=== PATIENT | female | born 1970 | race Caucasian/White ===

== ENCOUNTER 2016-11-08 11:27 | Inpatient (IN) | payer OTHER ==
[~2016-11-08] VITALS: Ht 162.6 cm; Wt 122.7 kg
[~2016-11-08 11:27] MED LIST: "\\\"BP MED\\\""; "\\\"CHOLESTEROL MED\\\""; ABILIFY5 MG PO; ACCUNEB 0.0.63 MG/3 INH; ALBUTEROL0.09 MG/A2 IH; AMBIEN10 M1 PO; AMBIEN10 MG PO; AMOXICILLIN500 MG PO; ATORVASTATIN TAB 20M; B-12 IM; BIRTH CONTROL1 EAC1 PO; CATAFLAM50 MG PO; CIPROFLOXACIN500 MG PO; CLARITIN10 MG PO; CLEOCIN HCL150 MG PO; CYMBALTA60 MG PO; DILANTIN PO; FERATE27 MG PO; FERROUS SULFAT325 M1 PO; FIORICET 325 MG1 TAB PO; FUROSEMIDE40 MG PO; KCL; KEPPRA500 MG PO; LASIX10 MG/ML PO; LASIX20 MG PO; LASIX40 MG PO; LEVOFLOXACIN500 MG PO; LIPITOR10 MG PO; MULTIPLE VITAMI1 CAP PO; MULTIVITAMIN1 CTB PO; PANTOPRAZOLE TAB 40M; PEN-VEE K500 MG PO; POTASSIUM CHLO20 ME1 PO; PRENATAL1 TA1 PO; PROTONIX40 MG PO; SERTRALINE HYD100 MG PO; SYMBICORT1 AE1 IH; SYMBICORT1 AE1 INH; TRAMADOL HCL50 MG PO; TRAMADOL50 MG PO; TRIMOX500 MG PO; VENTOLIN H0.09 MG/AC IH; VENTOLIN0.09 MG/AC INH; XANAX0.25 MG PO; XANAX1 MG PO; ZESTRIL,PRINIVI10 MG PO; ZOFRAN4 MG PO
[2016-11-08] MEDS ORDERED: NEURONTIN400 MG PO (11:32)
[2016-11-08] MEDS ORDERED: VISTARIL25 MG PO (11:33)
[2016-11-08] MEDS ORDERED: VRAYLAR3 MG PO (11:33)
[2016-11-08] MEDS ORDERED: LAMICTAL100 MG PO (11:33)
[2016-11-08 11:34] VITALS: BP 129/83
[2016-11-08 12:04] LABS: BASO # 0.1 10*3/uL (0.0-0.1); BASO % 0.5 % (0.0-1.0); EOS # 1.1 10*3/uL (0.0-0.4); EOS % 7.1 % (1.0-4.0); HEMATOCRIT 38.6 % (37.0-47.0); HEMOGLOBIN 12.4 g/dl (12.0-16.0); IG # 0.1 10*3/uL (0.0-0.1); LYMPH # 2.1 10*3/uL (1.3-4.4); LYMPH % 13.2 % (27.0-41.0); MEAN CELL VOLUME 86.2 fl (81.0-99.0); MEAN CORPUSCULAR HGB 27.7 pg (27.0-31.0); MEAN CORPUSCULAR HGB CONC 32.1 g/dl (33.0-37.0); MEAN PLATELET VOLUME 9.6 fl (9.6-12.3); MONO % 6.1 % (3.0-9.0); NEUT # 11.4 10*3/uL (2.3-7.9); NEUT % 72.5 % (47.0-73.0); PLATELET COUNT AUTOMATED 375 10*3/uL (130-400); RED BLOOD COUNT 4.48 10*6/uL (4.10-5.10); WHITE BLOOD COUNT 15.7 10*3/uL (4.8-10.8)
[2016-11-08 12:19] LABS: BILIRUBIN, TOTAL 0.2 mg/dl (0.2-1.0); BUN 9 mg/dl (7-24); CARBON DIOXIDE 26 mmol/L (21-32); CHLORIDE 105 mmol/L (98-107); EST GLOM FILT AFRICAN AMERICAN > 60 ml/min; GLUCOSE 84 mg/dL (65-99); SGOT/AST 16 IU/L (3-35); SGPT/ALT 11 U/L (12-78); SODIUM 140 mmol/L (136-145); TOTAL PROTEIN 7.2 gm/dL (6.4-8.2)
[2016-11-08 12:21] LABS: ALKALINE PHOSPHATASE 118 U/L (45-117)
[2016-11-08 12:26] VITALS: BP 120/77
[2016-11-08 12:34] VITALS: BP 133/92
[2016-11-08 13:20] VITALS: BP 102/65
[2016-11-08 16:00] VITALS: BP 101/60
[2016-11-08 20:00] VITALS: BP 98/52
[2016-11-09] VITALS (8 sets, daily range): BP systolic 98–132; BP diastolic 43–92
[2016-11-09 06:59] LABS: BASO # 0.1 10*3/uL (0.0-0.1); BASO % 0.4 % (0.0-1.0); EOS # 0.8 10*3/uL (0.0-0.4); EOS % 5.7 % (1.0-4.0); HEMATOCRIT 36.5 % (37.0-47.0); HEMOGLOBIN 11.6 g/dl (12.0-16.0); IG # 0.1 10*3/uL (0.0-0.1); LYMPH # 1.3 10*3/uL (1.3-4.4); LYMPH % 9.5 % (27.0-41.0); MEAN CELL VOLUME 86.7 fl (81.0-99.0); MEAN CORPUSCULAR HGB 27.6 pg (27.0-31.0); MEAN CORPUSCULAR HGB CONC 31.8 g/dl (33.0-37.0); MEAN PLATELET VOLUME 9.4 fl (9.6-12.3); MONO # 0.6 10*3/uL (0.1-1.0); MONO % 4.3 % (3.0-9.0); NEUT # 10.8 10*3/uL (2.3-7.9); NEUT % 79.7 % (47.0-73.0); PLATELET COUNT AUTOMATED 365 10*3/uL (130-400); RED BLOOD COUNT 4.21 10*6/uL (4.10-5.10); RED CELL DISTRI WIDTH 13.1 % (0-14.5); WHITE BLOOD COUNT 13.6 10*3/uL (4.8-10.8)
[2016-11-09 07:34] LABS: CHLORIDE 106 mmol/L (98-107); POTASSIUM 3.8 mmol/L (3.5-5.1); SODIUM 141 mmol/L (136-145)
[2016-11-09 07:44] LABS: ALBUMIN 2.7 gm/dl (3.1-4.5); ALKALINE PHOSPHATASE 111 U/L (45-117); BILIRUBIN, TOTAL 0.3 mg/dl (0.2-1.0); BUN 9 mg/dl (7-24); CARBON DIOXIDE 27 mmol/L (21-32); EST GLOM FILT AFRICAN AMERICAN > 60 ml/min; GLUCOSE 87 mg/dL (65-99); SGOT/AST 12 IU/L (3-35); SGPT/ALT 11 U/L (12-78); TOTAL PROTEIN 6.9 gm/dL (6.4-8.2)
[2016-11-10] VITALS: BP 115/70
[2016-11-10 08:00] VITALS: BP 98/61
[2016-11-10 09:27] LABS: BASO # 0.1 10*3/uL (0.0-0.1); BASO % 0.7 % (0.0-1.0); EOS # 0.7 10*3/uL (0.0-0.4); EOS % 10.7 % (1.0-4.0); HEMATOCRIT 34.4 % (37.0-47.0); HEMOGLOBIN 10.8 g/dl (12.0-16.0); LYMPH # 1.1 10*3/uL (1.3-4.4); LYMPH % 16.4 % (27.0-41.0); MEAN CELL VOLUME 86.6 fl (81.0-99.0); MEAN CORPUSCULAR HGB 27.2 pg (27.0-31.0); MEAN CORPUSCULAR HGB CONC 31.4 g/dl (33.0-37.0); MEAN PLATELET VOLUME 9.6 fl (9.6-12.3); MONO # 0.4 10*3/uL (0.1-1.0); MONO % 6.1 % (3.0-9.0); NEUT # 4.5 10*3/uL (2.3-7.9); NEUT % 65.5 % (47.0-73.0); PLATELET COUNT AUTOMATED 333 10*3/uL (130-400); RED BLOOD COUNT 3.97 10*6/uL (4.10-5.10); RED CELL DISTRI WIDTH 12.9 % (0-14.5); WHITE BLOOD COUNT 6.8 10*3/uL (4.8-10.8)
[2016-11-10 09:55] LABS: BUN 8 mg/dl (7-24); CARBON DIOXIDE 30 mmol/L (21-32); CHLORIDE 106 mmol/L (98-107); EST GLOM FILT AFRICAN AMERICAN > 60 ml/min; GLUCOSE 127 mg/dL (65-99); POTASSIUM 3.6 mmol/L (3.5-5.1); SODIUM 143 mmol/L (136-145)
[2016-11-10] MEDS ORDERED: ACETAMINOPHEN-H1 TA2 PO (10:33)
[2016-11-10] MEDS ORDERED: BACTRIM DS 8001 TA1 PO (11:06)
[2016-11-10] MEDS ORDERED: KEFLEX500 M1 PO (11:06)
[2016-11-10] MEDS ORDERED: IBU800 M1 PO (11:11)
[2016-11-10 12:00] VITALS: BP 124/68
[2016-11-10 16:00] VITALS: BP 106/76
[2016-11-10 20:00] VITALS: BP 113/66
[2016-11-11] VITALS: BP 108/60
[2016-11-11 01:20] VITALS: BP 126/83
[2016-11-11 08:00] VITALS: BP 134/60
[2016-11-11 12:00] VITALS: BP 126/83
[2016-11-11] MEDS ORDERED: HYDROCODONE BIT1 T11 PO (15:53)
== END 2016-11-11 16:36 | disposition home health service (06) | DRG 602 ==
LOC: ED 11:27 → EDHOLD 12:17 → 5E 12:17
PROVIDERS: Family Medicine; Nurse Practitioner Family; Student in an Organized Health Care Education/Training Program
PROC: 0J990ZX Drainage of Buttock Subcutaneous Tissue and Fascia, Open Approach, Diagnostic (ICD-10-PCS; principal; 2016-11-09)
DX: L03.317 Cellulitis of buttock (principal); E43 Unspecified severe protein-calorie malnutrition; L05.01 Pilonidal cyst with abscess; Z68.42 Body mass index [BMI] 45.0-49.9, adult; E66.01 Morbid (severe) obesity due to excess calories; G40.909 Epilepsy, unspecified, not intractable, without status epilepticus; J44.9 Chronic obstructive pulmonary disease, unspecified; F39 Unspecified mood [affective] disorder; Z98.84 Bariatric surgery status; Z98.51 Tubal ligation status; Z87.891 Personal history of nicotine dependence; Z79.51 Long term (current) use of inhaled steroids; Z79.899 Other long term (current) drug therapy; R03.0 Elevated blood-pressure reading, without diagnosis of hypertension

== ENCOUNTER → 2016-11-13 | Outpatient (CLI) | payer OTHER ==
[~2016-11-13] MED LIST changes: +ACETAMINOPHEN-H1 TA2 PO; +BACTRIM DS 8001 TA1 PO; +HYDROCODONE BIT1 T11 PO; +IBU800 M1 PO; +KEFLEX500 M1 PO; +LAMICTAL100 MG PO; +NEURONTIN400 MG PO; +VISTARIL25 MG PO; +VRAYLAR3 MG PO
== END ==
LOC: WOUNDCARE 02:20
DX: L02.31 Cutaneous abscess of buttock (principal); E66.01 Morbid (severe) obesity due to excess calories; Z87.891 Personal history of nicotine dependence

== ENCOUNTER → 2016-11-27 | Outpatient (CLI) | payer OTHER ==
--- NOTE | ~2016-11-27 | PR ---
[place], [place] PROGRESS NOTE NAME: KARYN GARRIDO [facility] #: [id number] UNIT #: [id number] ROOM: DOCTOR: ANANTH LARA M.D. BIRTHDATE: [birth year] DOS: 11/27/2016 CHIEF COMPLAINT: Followup of abscess of the left buttock area. HISTORY OF PRESENT ILLNESS: The patient has had an abscess of the left buttock drained approximately 3-4 weeks ago. She comes in for a followup wound care visit. Last week, when we saw her, the wound tunneled down 8 cm over 8 cm at the 3 o'clock position. She was asked to use Hydrofera Blue rope to the area. We actually had to use a regular foam bandage cut from regular foam Hydrofera, cut into a spiral shape because we did not have the rope that was long enough to fit the wound, so they have been using that to pack the wound with. She has had home health coming in to do that and the home health agency reports the patient that the wound is getting better. The patient reports no drainage, no pain, no fevers or chills and she has completed her antibiotics. SOCIAL HISTORY: She is a former smoker. PHYSICAL EXAMINATION: Today shows vital signs that are stable. Temperature is 98.4, pulse 80, respirations 18, blood pressure is 142/84. The wound is 0.4 x 0.7 x 3.9 at the maximum depth. I am actually able to go almost 4 cm in that area where the tunnel was at the 3 o'clock position, but other than that it is not going any deeper than that and definitely looks good. It is not indurated. It is not painful. There is no purulent drainage noted. ASSESSMENT AND PLAN: Abscess of the left buttock, which is definitely improving. I would continue with the Hydrofera Blue rope. We can actually use the rope now since the wound has definitely gotten smaller and the rope should be able to fit it adequately, so we will use that and hopefully consider changing it to a collagen in the next week or so. Follow up in one week. ANANTH LARA MD CM:JEREMIAHTRANS [id number] ANANTH LARA M.D. 11/27/16 1543 interface
== END ==
LOC: WOUNDCARE 12:14
DX: L02.31 Cutaneous abscess of buttock (principal); Z87.891 Personal history of nicotine dependence

== ENCOUNTER → 2016-12-04 | Outpatient (CLI) | payer OTHER ==
--- NOTE | ~2016-12-04 | PR ---
[place], [place] PROGRESS NOTE NAME: KARYN GARRIDO [facility] #: [id number] UNIT #: [id number] ROOM: DOCTOR: ANANTH LARA M.D. BIRTHDATE: [birth year] DOS: 12/04/2016 CHIEF COMPLAINT: Followup of an abscess of the left buttock area. HISTORY OF PRESENT ILLNESS: This is a 46-year-old female with a history of obesity who has had a very large abscess drained from her left buttock approximately 4 weeks ago. This was done in the OR. The patient has been following up in the Wound Clinic for 3 weeks now. The wound was quite deep and tunneling initially up to almost 11 cm. She has been using Hydrofera Blue Rope to the wound for packing. She comes in today without any specific complaints. There is no pain. There are no fevers or chills. Very little drainage. She still has home health coming in but may not be able to have them come in every other day as instructed as she will be spending some time at her mother's house, so she is wondering if the packing can be changed less often. OBJECTIVE: VITAL SIGNS: Stable. Blood pressure 140/90, pulse 82, respirations 18, and temperature 98.3. WOUND: The wound is measuring 0.4 x 0.5 x 2 cm, which is definitely improved from last time she was here. The tunnel went down to 3.9 cm, so no debridement was done. ASSESSMENT AND PLAN: Large abscess of the left buttock area. The wound seems to be improving and the tunnel is definitely getting smaller. I would continue with Hydrofera Blue Rope, she can keep this in place for 3 days at a time since it does not seem to be draining a whole lot and it definitely seems to be on its way to healing. Follow up in one week. ANANTH LARA MD CM:PNTRANS [id number] ANANTH LARA M.D. 12/05/16 0905 interface
== END ==
LOC: WOUNDCARE 00:49
DX: L02.31 Cutaneous abscess of buttock (principal); E66.9 Obesity, unspecified

== ENCOUNTER → 2016-12-11 | Outpatient (CLI) | payer OTHER ==
--- NOTE | ~2016-12-11 | PR ---
[place], [place] PROGRESS NOTE NAME: KARYN GARRIDO [facility] #: [id number] UNIT #: [id number] ROOM: DOCTOR: ANANTH LARA M.D. BIRTHDATE: [birth year] DOS: 12/11/2016 CHIEF COMPLAINT: Followup of an abscess of the left buttock area. HISTORY OF PRESENT ILLNESS: This is a 46-year-old female with a history of obesity who had a very large abscess drained from the left buttock approximately 5 weeks ago. She was left with a very large open wound that had tunneling of almost 11 cm. She has been coming to the Wound Clinic now for 4 weeks with a steadily improving wound. She still has home health coming in to pack it. They are using Hydrofera Blue Rope. She has no pain, no fevers, no chills, very little drainage. She is wanting to know if home health can come in less frequently. She is nondiabetic. SOCIAL HISTORY: She is a smoker. She quit a few months back but now restarted half pack per day. OBJECTIVE: VITAL SIGNS: Stable. Temperature is not documented, pulse is 80, respirations are 18 and blood pressure is 142/86. SKIN: The wound is measuring 0.3 x 0.5 x 0.9. It is clean. There is no cellulitis. There is no induration. It is definitely improving quite a bit. No debridement was done. ASSESSMENT AND PLAN: Cutaneous abscess of the left buttock which is healing nicely. It is small enough now and I think we can use collagen. So, we will go ahead and do collagen Ag and a foam dressing that can be changed twice a week. Followup is in one week. ANANTH LARA MD CM:ITALO [id number] ANANTH LARA M.D. 12/11/16 1022 interface
== END | disposition home or self-care (01) ==
LOC: WOUNDCARE 03:07
DX: L02.31 Cutaneous abscess of buttock (principal); E66.9 Obesity, unspecified; F17.210 Nicotine dependence, cigarettes, uncomplicated

== ENCOUNTER → 2016-12-18 | Outpatient (CLI) | payer OTHER ==
--- NOTE | ~2016-12-18 | PR ---
[place], [place] PROGRESS NOTE NAME: KARYN GARRIDO [facility] #: [id number] UNIT #: [id number] ROOM: DOCTOR: ANANTH LARA M.D. BIRTHDATE: [birth year] DOS: 12/18/2016 CHIEF COMPLAINT: Followup of an abscess of the left buttock. HISTORY OF PRESENT ILLNESS: This is a 46-year-old female who had a very large abscess drained operatively several weeks ago. She has been following in the Wound Clinic for 4 weeks now with steadily improving open ulcer of the buttock area. Last week, she was changed to a collagen. She comes in today she says they are really not able to pack the wound anymore and there is no drainage, pain or fevers from it. OBJECTIVE: VITAL SIGNS: Stable. Temperature is 98.2, pulse is 76, respirations 18 and blood pressure is 132/70. SKIN: The wound is healed. There are no open areas at all. ASSESSMENT AND PLAN: Healed cutaneous abscess of the left buttock. We will discharge the patient. I did explain that if for some reason things were open up again she should follow back up with us. ANANTH LARA MD CM:ITALO [id number] ANANTH LARA M.D. 12/23/16 1021 interface
== END | disposition home or self-care (01) ==
LOC: WOUNDCARE 01:21
DX: L02.31 Cutaneous abscess of buttock (principal)

== ENCOUNTER 2018-03-09 19:10 | Emergency (ER) | payer OTHER ==
[~2018-03-09] VITALS: Ht 161.2 cm; Wt 119.7 kg
[2018-03-09 19:12] VITALS: BP 130/75
[2018-03-09] MEDS ORDERED: CLINDAMYCIN HC300 MG PO (21:29)
[2018-03-09] MEDS ORDERED: ANAPROX DS550 MG PO (21:29)
[2018-03-09] MEDS ORDERED: NORCO 5-325 TA1 EACH PO (21:54)
== END 2018-03-10 00:39 | disposition home or self-care (01) ==
LOC: ED 19:10
DX: S52.132A Displaced fracture of neck of left radius, initial encounter for closed fracture (principal); K04.7 Periapical abscess without sinus; F17.200 Nicotine dependence, unspecified, uncomplicated; Z79.2 Long term (current) use of antibiotics; Z79.1 Long term (current) use of non-steroidal anti-inflammatories (NSAID); Z79.899 Other long term (current) drug therapy; Z90.49 Acquired absence of other specified parts of digestive tract; W01.0XXA Fall on same level from slipping, tripping and stumbling without subsequent striking against object, initial encounter; Y93.89 Activity, other specified; Y92.89 Other specified places as the place of occurrence of the external cause; Y99.8 Other external cause status

== ENCOUNTER → 2018-03-16 | Outpatient (CLI) | payer OTHER ==
[~2018-03-16] MED LIST changes: +ANAPROX DS550 MG PO; +CLINDAMYCIN HC300 MG PO; +NORCO 5-325 TA1 EACH PO
== END ==
LOC: RAD 00:01 → ORTHO 00:01
DX: S52.135A Nondisplaced fracture of neck of left radius, initial encounter for closed fracture (principal); X58.XXXA Exposure to other specified factors, initial encounter; Y93.89 Activity, other specified; Y92.89 Other specified places as the place of occurrence of the external cause; Y99.8 Other external cause status

== ENCOUNTER → 2018-03-30 | Outpatient (CLI) | payer OTHER | LOC: ORTHO 04:08 | DX: S52.135D Nondisplaced fracture of neck of left radius, subsequent encounter for closed fracture with routine healing (principal); X58.XXXD Exposure to other specified factors, subsequent encounter ==

== ENCOUNTER 2018-04-16 16:38 | Emergency (ER) | payer OTHER ==
[~2018-04-16] VITALS: Ht 160 cm; Wt 131.5 kg
[2018-04-16 16:40] VITALS: BP 144/74
[2018-04-16] MEDS ORDERED: PENICILLIN VK500 MG PO (16:42)
== END 2018-04-16 16:50 | disposition home or self-care (01) ==
LOC: ED 16:38
DX: K04.7 Periapical abscess without sinus (principal); R03.0 Elevated blood-pressure reading, without diagnosis of hypertension; J44.9 Chronic obstructive pulmonary disease, unspecified; G40.909 Epilepsy, unspecified, not intractable, without status epilepticus; Z79.2 Long term (current) use of antibiotics; Z79.899 Other long term (current) drug therapy

== ENCOUNTER → 2018-04-30 | Outpatient (CLI) | payer OTHER ==
[~2018-04-30] MED LIST changes: +PENICILLIN VK500 MG PO
== END | disposition home or self-care (01) ==
LOC: ORTHO 01:36
DX: S52.135D Nondisplaced fracture of neck of left radius, subsequent encounter for closed fracture with routine healing (principal); X58.XXXD Exposure to other specified factors, subsequent encounter

== ENCOUNTER → 2018-05-17 | Outpatient (CLI) | payer OTHER | END | disposition home or self-care (01) | LOC: ORTHO 02:13 | DX: S52.135D Nondisplaced fracture of neck of left radius, subsequent encounter for closed fracture with routine healing (principal); X58.XXXD Exposure to other specified factors, subsequent encounter ==

== ENCOUNTER → 2018-06-24 | Outpatient (CLI) | payer OTHER | END | disposition home or self-care (01) | LOC: ORTHO 00:14 → LAB 00:14 → ORTHO 15:40 | DX: S52.135D Nondisplaced fracture of neck of left radius, subsequent encounter for closed fracture with routine healing (principal); E55.9 Vitamin D deficiency, unspecified; X58.XXXD Exposure to other specified factors, subsequent encounter ==

== ENCOUNTER → 2018-08-19 | Outpatient (CLI) | payer OTHER | END | disposition home or self-care (01) | LOC: ORTHO 01:28 | DX: S52.132 Displaced fracture of neck of left radius (principal); X58.XXXD Exposure to other specified factors, subsequent encounter ==

== ENCOUNTER → 2018-11-24 | Outpatient (CLI) | payer OTHER | END | disposition home or self-care (01) | LOC: ORTHO 01:14 | DX: S52.135D Nondisplaced fracture of neck of left radius, subsequent encounter for closed fracture with routine healing (principal); X58.XXXD Exposure to other specified factors, subsequent encounter ==